=== PATIENT | male | born 1940 | race Caucasian/White ===

== ENCOUNTER → 2019-03-29 | Outpatient (CLI) | payer MEDICARE, BC ==
[~2019-03-29] MED LIST: ALLO-2 PO; ALLO100T70 PO; CEP500 PO; DIPH-740 PO; FLU45SYR17 IM; INDO-23 PO; PNEU0.5D3 IM; PRED-314 PO; ROBC PO; TRIA15CR40 TP; WARF10TA29 PO; WARF5TAB23 PO
--- NOTE | 2019-03-29 17:15 | RADIOLOGY IMAGING REPORT ---
FACILITY: [facility] [place] PATIENT NAME: Lee Tuttle : 1940 MR: [id number] V: [id number] EXAM DATE: ORDERING PHYSICIAN: IRIS MEDRANO TECHNOLOGIST: Location: [facility] Patient: Lee Tuttle : 1940 Visit/Account:[id number] Date of Sevice: 03/29/2019 2 VIEWS CHEST INDICATION: Shortness of breath on exertion. Cough. COMPARISON: None available FINDINGS: Cardiomediastinal silhouette and pulmonary vessels within normal limits. There is no focal infiltrate or lobar consolidation. There is no pneumothorax or pleural effusion. There is faint nodular opacity seen on lateral view the inferior aspect of the lungs at the junction lung and abdomen. This is not seen on the frontal view. Upper abdomen is unremarkable. No acute bony abnormality. IMPRESSION: 1. No acute cardiopulmonary process. As well as its through the upper abdomen. 2. Faint nodular opacity seen in the posterior aspect of the lower lung region. Unsure if this is ove rlapping shadows, mass or focal parenchymal abnormality. A follow-up CT scan of the chest can evaluat e including the upper abdomen. Report Dictated By: John José at 03/29/2019 5:04 PM Report E-Signed By: John José at 03/29/2019 5:08 PM WSN:[id number]
== END ==
LOC: RAD 15:55
PROVIDERS: ATTEND Nurse Practitioner Primary Care
DX: R06.02 Shortness of breath (principal)
CPT/HCPCS: 71046

== ENCOUNTER → 2019-03-31 | Outpatient (CLI) | payer MEDICARE, BC ==
[~2019-03-31] MED LIST changes: +IOPAMIDOL 76% 100 ML INFUS BTL 100 ML ONE
--- NOTE | 2019-03-31 16:12 | RADIOLOGY IMAGING REPORT ---
FACILITY: [facility] [place] PATIENT NAME: Lee Tuttle : 1940 MR: [id number] V: [id number] EXAM DATE: ORDERING PHYSICIAN: IRIS MEDRANO TECHNOLOGIST: Location: [facility] Patient: Lee Tuttle : 1940 Visit/Account:[id number] Date of Sevice: 03/31/2019 CT CHEST ABDOMEN PELVIS W & W/O HISTORY: Cough. Weight loss. TECHNIQUE: CT imaging was obtained through the chest, abdomen and pelvis without and with intravenou s contrast. One of the following dose optimization techniques was utilized in the performance of this exam: automated exposure control; adjustment of the mA and/or kv according to patient size; or use o f iterative reconstruction technique. Specific details can be referenced in the facility's radiology CT exam operational policy. CONTRAST: 75 cc of Isovue-370 COMPARISON: CT abdomen/pelvis 10/08/2010 FINDINGS: CHEST: Lower neck: Nonenlarged left supraclavicular lymph nodes measuring 1.0 x 0.5 cm (image 29). Vessels: Mild mixed plaque within the thoracic aorta. Heart and pericardium: Negative Mediastinum/hilum/lymph nodes: Multiple nonenlarged mediastinal lymph nodes with the largest left emery perior lymph node between the left subclavian artery and left common carotid artery measuring 1.5 x 0 .7 cm (image 76). Lungs/pleura: 5.2 x 3.0 x 2.8 cm left upper lobe pulmonary mass abutting the mediastinum at the aort ic arch with central areas of fluid attenuation likely representing necrosis. Mass extends into the s uperior aspect of the left hilum mild surrounding groundglass-reticular opacities. Difficult to diffe rentiate mass from a potential postobstructive atelectasis within the left lower lobe abutting the di aphragm measuring 3.8 x 2.9 x 4.2 cm. No pleural effusion. 3 mm right middle lobe pulmonary nodule (s eries 8 image 66). Bones/soft tissues: Negative. Other findings: None significant ABDOMEN/PELVIS: Hepatobiliary: Negative. Spleen: Negative. Adrenals: Stable thickening and nodularity of the lateral limb of the left adrenal gland. Right adre nal is normal. Pancreas: Negative. Kidneys/ureters/bladder: Negative. Bowel/peritoneum/mesentery: Negative. Vessels: Mild arterial calcifications. Lymph nodes: Negative. Pelvic genitourinary: Negative. Bones/soft tissues: Mild degenerative changes within the lumbar spine. 2 mm of anterolisthesis at L4 -L5. Other findings: None significant IMPRESSION: 1. Within the chest there are 2 masslike lesions within the lung with the left upper lobe abutting th e mediastinum and the left lower lobe lesion abutting the diaphragm. Neoplasm favored over infection. Recommend tissue sampling with bronchoscopy. There are nonenlarged mediastinal and left supraclavicu lar lymph nodes which could be further evaluated with PET/CT if the lung biopsy proves to be malignan t. 2. Within the abdomen and pelvis there is stable thickening and nodularity of the lateral limb of the left adrenal gland since 2010 consistent with benign process. Otherwise no concerning mass or lympha denopathy. Report Dictated By: Jian Marquez MD at 03/31/2019 3:46 PM Report E-Signed By: Jian Marquez MD at 03/31/2019 4:01 PM WSN:[id number]
== END ==
LOC: CT 00:57
PROVIDERS: ATTEND Nurse Practitioner Primary Care
DX: R05 Cough (principal); R91.8 Other nonspecific abnormal finding of lung field
CPT/HCPCS: 36415; 71270; 74178; Q9967; 82040; 82247; 82310; 82374; 82435; 82565; 82947; 84075; 84132; 84155; 84295; 84450; 84460; 84520